=== PATIENT | male | born 1950 | race Caucasian/White ===

== ENCOUNTER → 2024-12-13 09:39 | Outpatient (REF) | payer MEDICARE, OTHER, SELFPAY | LOC: HWRAD 09:39 | PROVIDERS: ATTENDING PHYSICIAN Internal Medicine Critical Care Medicine; FAMILY PHYSICIAN Family Medicine | DX: G47.33 Obstructive sleep apnea (adult) (pediatric) (principal); J92.9 Pleural plaque without asbestos | CPT/HCPCS: 71250 ==

== ENCOUNTER → 2024-12-14 08:40 | Outpatient (REF) | payer MEDICARE, OTHER, SELFPAY | LOC: HWRAD 08:40 | PROVIDERS: ATTENDING PHYSICIAN Internal Medicine Critical Care Medicine; FAMILY PHYSICIAN Family Medicine; REFERRING PHYSICIAN Internal Medicine Cardiovascular Disease | DX: Z86.718 Personal history of other venous thrombosis and embolism (principal); R60.9 Edema, unspecified | CPT/HCPCS: 93970 ==

== ENCOUNTER 2025-01-06 06:25 | Day surgery (SDC) | payer MEDICARE, OTHER, SELFPAY ==
[2025-01-06 12:37] VITALS: BMI 43.5
[2025-01-06 14:08] VITALS: BP 145/87
[2025-01-06 14:15] VITALS: BP 156/90
[2025-01-06 14:30] VITALS: BP 165/81
== END 2025-01-06 14:45 | disposition home or self-care (01) ==
LOC: SDS 06:25
PROVIDERS: ATTENDING PHYSICIAN Internal Medicine Gastroenterology
DX: Z12.11 Encounter for screening for malignant neoplasm of colon (principal); K64.8 Other hemorrhoids; D12.8 Benign neoplasm of rectum; K62.1 Rectal polyp; Z86.0101 Personal history of adenomatous and serrated colon polyps
CPT/HCPCS: 45380; 88305